=== PATIENT | male | born 1935 | race Caucasian/White ===

== ENCOUNTER → 2017-11-28 | Outpatient (CLI) | payer MEDICARE ==
[2017-11-28 10:20] LABS: ALANINE AMINOTRANSFERASE 43 U/L (12-78); ALBUMIN 3.9 g/dL (3.4-5.0); ANION GAP 6 mmol/L (5-15); CHLORIDE 111 mmol/L (98-107); CREATININE 1.17 mg/dL (0.7-1.3)
[2017-11-28 10:23] LABS: ALKALINE PHOSPHATASE 68 U/L (45-117); BILIRUBIN,TOTAL 0.8 mg/dL (0.2-1.0); CHOL/HDL RATIO 4.3; CHOLESTEROL, TOTAL 163 mg/dL (140-239); HDL CHOL % 23 % (26-37); HDL CHOLESTEROL (DIRECT) 38 mg/dL (40-60); LDL CHOLESTEROL,CALCULATED 95 mg/dL (54-169); LDL/HDL RATIO 2.5 (0.5-3.0); TOTAL PROTEIN 7.6 g/dL (6.4-8.2); TRIGLYCERIDES 148 mg/dL (50-200); VLDL CHOLESTEROL 30 mg/dL (0-25)
== END | disposition home or self-care (01) ==
LOC: LAB 09:32
PROVIDERS: ATTEND Family Medicine
DX: E78.5 Hyperlipidemia, unspecified (principal)
CPT/HCPCS: 36415; 80053; 80061

== ENCOUNTER → 2018-01-22 | Outpatient (CLI) | payer MEDICARE | END | disposition home or self-care (01) | LOC: CFH 12:13 | PROVIDERS: ATTEND Internal Medicine Cardiovascular Disease | DX: I25.9 Chronic ischemic heart disease, unspecified (principal); I45.10 Unspecified right bundle-branch block; R00.1 Bradycardia, unspecified; R06.02 Shortness of breath | CPT/HCPCS: 78452; 93017; 93306; A9502 ==

== ENCOUNTER → 2019-11-22 | Outpatient (CLI) | payer MEDICARE, OTHER | END | disposition home or self-care (01) | LOC: CFH 07:18 | PROVIDERS: ATTEND Internal Medicine Cardiovascular Disease | DX: I08.8 Other rheumatic multiple valve diseases (principal); I25.9 Chronic ischemic heart disease, unspecified; I47.2 Ventricular tachycardia; I25.10 Atherosclerotic heart disease of native coronary artery without angina pectoris | CPT/HCPCS: 78452; 93017; 93306; A9502 ==

== ENCOUNTER 2020-12-04 11:30 | Observation (INO) | payer MEDICARE, OTHER ==
[~2020-12-04] VITALS: Ht 190.5 cm; Wt 93.6 kg
[2020-12-04] MEDS ORDERED: GARL400T12 PO (12:23)
[2020-12-04] MEDS ORDERED: ROSU40TA PO (12:23)
[2020-12-04] MEDS ORDERED: LUTE20TA PO (12:23)
[2020-12-04] MEDS ORDERED: OMEP-110 PO (12:23)
[2020-12-04] MEDS ORDERED: ROSU10TA2 PO (12:26)
[2020-12-04] MEDS ORDERED: ASCO500T93 PO (12:26)
[2020-12-04] MEDS ORDERED: RESV100C PO (12:26)
[2020-12-04] MEDS ORDERED: MIRA25TA PO (12:26)
[2020-12-04] MEDS ORDERED: [UNRECOGNIZED DRUG - OTHER] PO (12:26)
[2020-12-04] MEDS ORDERED: VITA100T PO (12:26)
[2020-12-04] MEDS ORDERED: FENTANYL PF 100 MCG/2ML ONE (12:52)
[2020-12-04] MEDS ORDERED: MIDAZOLAM 1 MG/ML, 5ML ONE (12:52)
[2020-12-04] MEDS ORDERED: CEFAZOLIN 1,000 MG ONE (12:52)
[2020-12-04] MEDS ORDERED: CEFAZOLIN PMX 1GM/50ML 50 ML ONE (12:52)
[2020-12-04] MEDS: SODIUM CHLORIDE 0.9% 1,000 ML IV SCH ×2 (13:00→21:00)
[2020-12-04 13:01] LABS: BASOPHILS % (AUTO) 0 % (0-1); EOSINOPHILS % (AUTO) 2 % (1-7); LYMPHOCYTES % (AUTO) 29 % (22-44); MEAN CORPUSCULAR HEMOGLOBIN 31.4 pg (27.5-34.5); MEAN CORPUSCULAR HGB CONC 34.5 g/dL (33.2-36.2); MEAN PLATELET VOLUME 8.3 fL (7.4-10.4); MONOCYTES % (AUTO) 12 % (2-9); NEUTROPHILS % (AUTO) 56 % (42-75); PLATELET COUNT 160 x10^3/uL (130-400); RED BLOOD COUNT 4.78 x10^6/uL (4.38-5.82)
[2020-12-04 13:03] LABS: MD NO
[2020-12-04 13:11] LABS: ANION GAP 4 mmol/L (5-15); CHLORIDE 113 mmol/L (98-107); CREATININE 1.06 mg/dL (0.7-1.3)
[2020-12-04] MEDS ORDERED: HYDROcodone/APAP 5/325 TABLET PO PRN (14:30)
[2020-12-04] MEDS ORDERED: HOLD MEDICATION MC PRN (14:30)
[2020-12-04] MEDS ORDERED: ACETAMINOPHEN 325 MG TABLET PO PRN (14:30)
[2020-12-04] MEDS ORDERED: ZOLPIDEM 5MG TABLET PO PRN (14:30)
[2020-12-04 20:49] VITALS: BP 132/80
[2020-12-04] MEDS: SODIUM CHLORIDE FLUSH 10ML SYR IVF SCH (21:00)
[2020-12-04] MEDS: CEFAZOLIN PMX 1GM/50ML 50 ML IVPB SCH (21:30)
[2020-12-04 22:57] VITALS: BP 163/85
[2020-12-05 05:14] VITALS: BP 148/81
[2020-12-05] MEDS: CEFAZOLIN PMX 1GM/50ML 50 ML IVPB SCH (05:15)
[2020-12-05 07:25] VITALS: BP 154/76
[2020-12-05] MEDS: SODIUM CHLORIDE FLUSH 10ML SYR IVF SCH (08:01)
[2020-12-05] MEDS ORDERED: ACET325T26 PO (09:33)
== END 2020-12-05 10:45 | disposition home or self-care (01) ==
LOC: CACL 11:30 → 5SO 14:04 → CACL 15:05 → DCLOUNGE 12-05 10:36
PROVIDERS: ADMIT Internal Medicine Cardiovascular Disease; ATTEND Internal Medicine Cardiovascular Disease
DX: I44.1 Atrioventricular block, second degree (principal); I49.5 Sick sinus syndrome; Z79.899 Other long term (current) drug therapy
CPT/HCPCS: 33208; 36415; 71045; 80048; 85025; 96365; 96366; 99156; 99157; C1779; C1785; C1892; G0378; J0690; J2250; J3010

== ENCOUNTER 2021-03-30 09:43 | Emergency (ER) | payer MEDICARE, OTHER ==
[~2021-03-30] VITALS: Ht 190.5 cm; Wt 93.0 kg
[~2021-03-30 09:43] MED LIST: ACET325T26 PO; ASCO500T93 PO; GARL400T12 PO; LUTE20TA PO; MIRA25TA PO; OMEP-110 PO; RESV100C PO; ROSU10TA2 PO; ROSU40TA PO; VITA100T PO; [UNRECOGNIZED DRUG - OTHER] PO
--- NOTE | 2021-03-30 10:00 | NUR ---
ASSUMED CARE OF PT AT THIS TIME FROM LOBBY. AMBULATORY TO ROOM FROM TRIAGE WITH STEADY GAIT. ACCOMPANIED BY SPOUSE. 85 Y/O M PRESENTS STATING "I NEED AN XRAY, FELL INTO CABINET GETTING OUT OF BED YESTERDAY, I USUALLY SIT AND LET HEAD CLEAR WITH MY PACEMAKER BUT I STOOD UP TO FAST AND FELL TO SIDE AND HIT MY RIBS, PAIN ON RIGHT SIDE." RATES PAIN 8/10 RIGHT RIBS. REFUSES NEED FOR PAIN MEDICINE AT THIS TIME "I'M DRIVING HOME I DON'T WANT ANY NARCOTICS, TOOK TYLENOL EARLIER." CONT PULSE OX, BP MONITORS APPLIED. VSS. CALL LIGHT IN REACH. FALL PRECAUTIONS IN PLACE. [facility] AT BEDSIDE FOR EVALUATION. AWAITING ORDERS.
--- NOTE | 2021-03-30 10:11 | NUR ---
PT AMBULATORY TO RESTROOM WITH STEADY GAIT, CLEAN CATCH UA COLLECTED AND SENT TO LAB. PT RESTING IN POSITION OF COMFORT ON ED GURNEY. [employer] AT BEDSIDE FOR EKG. CALL LIGHT IN REACH. FALL PRECAUTIONS IN PLACE
--- NOTE | 2021-03-30 10:21 | NUR ---
PT IN RAD
[2021-03-30 10:34] LABS: MICROSCOPIC INDICATED
--- NOTE | 2021-03-30 10:35 | NUR ---
PT BACK FROM RAD. NAD NOTED. RESTING IN POSITION OF COMFORT. VSS. REFUSES NEED FOR PAIN MEDICATION. CALL LIGHT IN REACH. SPOUSE AT BEDSIDE
--- NOTE | 2021-03-30 10:48 | NUR ---
DR. MACKENZIE AT BEDSIDE FOR RECHECK DISCUSSING POC WITH PT AND PT SPOUSE, BOTH VERBALIZED UNDERSTANDING.
--- NOTE | 2021-03-30 10:59 | NUR ---
PT GIVEN INCENTIVE SPIROMETER, TEACHING PROVIDED, PT DEMONSTRATED PROPER USE AT 2000ML.
--- NOTE | 2021-03-30 11:04 | NUR ---
[facility] AT BEDSIDE DISCUSSING PT QUESTIONS AND SHOWING PT RAD RESULTS PER PT REQUEST
--- NOTE | 2021-03-30 11:19 | NUR ---
AWAITING CHART AND DISCHARGE PAPERS FROM ERP
--- NOTE | 2021-03-30 11:38 | NUR ---
BEDSIDE REPORT AND TRANSFER OF CARE TO [facility] AT THIS TIME.
[2021-03-30 11:50] VITALS: BP 126/82
== END 2021-03-30 12:04 | disposition home or self-care (01) ==
LOC: ED 11:22
DX: S22.31XA Fracture of one rib, right side, initial encounter for closed fracture (principal); I10 Essential (primary) hypertension; E78.5 Hyperlipidemia, unspecified; W18.30XA Fall on same level, unspecified, initial encounter; Y93.89 Activity, other specified; Y92.009 Unspecified place in unspecified non-institutional (private) residence as the place of occurrence of the external cause; Y99.8 Other external cause status
CPT/HCPCS: 81001; 87086; 93005; 99285